=== PATIENT | female | born 2000 | race Caucasian/White ===

== ENCOUNTER → 2018-08-30 | Outpatient (CLI) | payer OTHER ==
[~2018-08-30] MED LIST: ACYC400 PO; CODACE30 PO; HYDACE5 PO; HYDACE5325 PO; MUPI2TO TOP; SULTRIDS PO
== END | disposition home or self-care (01) ==
LOC: LAB SHORT 07:42 → LAB EV 07:42
DX: N39.0 Urinary tract infection, site not specified (principal)
CPT/HCPCS: 87086

== ENCOUNTER → 2018-11-13 | Outpatient (CLI) | payer OTHER ==
[2018-11-14 12:46] LABS: G. vaginalis (DNA Probe) Positive (NEGATIVE); T. vaginalis (DNA Probe) Negative (NEGATIVE)
[2018-11-14 12:47] LABS: Candida species (DNA Probe) Negative (NEGATIVE)
[2018-11-15 16:06] LABS: CHLAMYDIA TRACHOMATIS, NAA Negative (Negative); NEISSERIA GONORRHOEAE, NAA Negative (Negative)
== END | disposition home or self-care (01) ==
LOC: LAB EV 14:39 → LAB SHORT 14:39
PROVIDERS: Physician Assistant
DX: R30.0 Dysuria (principal)
CPT/HCPCS: 87480; 87491; 87510; 87591; 87660

== ENCOUNTER → 2019-02-15 | Outpatient (CLI) | payer OTHER ==
[2019-02-16 21:06] LABS: CHLAMYDIA TRACHOMATIS, NAA Negative (Negative); NEISSERIA GONORRHOEAE, NAA Negative (Negative)
== END | disposition home or self-care (01) ==
LOC: LAB EV 17:45 → LAB SHORT 17:45
PROVIDERS: Physician Assistant
DX: R30.0 Dysuria (principal)
CPT/HCPCS: 87070; 87205; 87491; 87591; 88175

== ENCOUNTER → 2019-03-15 | Outpatient (CLI) | payer OTHER | END | disposition home or self-care (01) | LOC: LAB SHORT 15:21 → LAB EV 15:21 | DX: N39.0 Urinary tract infection, site not specified (principal) | CPT/HCPCS: 87086 ==

== ENCOUNTER 2019-08-17 09:15 | Emergency (ER) | payer OTHER ==
[~2019-08-17] VITALS: Ht 177.8 cm; Wt 66.2 kg
[2019-08-17 10:51] LABS: Alanine Aminotransfer (ALT/SGP 31 U/L (12-78); Albumin, Blood 4.2 g/dL (3.4-5.0); Albumin/Globulin Ratio 1.2 (0.8-1.8); Alk Phos 86 U/L (50-136); Anion Gap 9 mmol/L (6-16); Aspartate Aminotrans (AST/SGOT 26 U/L (12-37); Bilirubin, Total 0.4 mg/dL (0.1-1.0); Blood Urea Nitrogen 8 mg/dL (8-24); Bun/Creatinine Ratio 9.4 (12.0-20.0); CO2, Blood 25 mmol/L (21-32); Calcium, Blood 9.1 mg/dL (8.5-10.1); Chloride, Blood 101 mmol/L (98-108); Creatinine, Blood 0.85 mg/dL (0.40-1.00); Globulin, Blood 3.6 g/dL (2.2-4.0); Glomerular Filtration Rate >60 (60-); Glucose, Blood 72 mg/dL (70-99); Potassium, Blood 3.9 mmol/L (3.5-5.5); Sodium, Blood 135 mmol/L (136-145); Total Protein, Blood 7.8 g/dL (6.4-8.2)
[2019-08-17 10:52] LABS: RDW Coefficient Variation 11.9 % (11.7-14.2); RDW Standard Deviation 38.6 fL (35.1-46.3)
[2019-08-17 11:00] LABS: Source, Urine Clean Catch
[2019-08-17 11:06] LABS: Bilirubin, Urine Neg (Neg); Blood, Urine 2+ (Neg); Glucose Qualitative, Urine Neg (Neg); Ketones, Urine 3+ (Neg); Leukocyte Esterase, Urine Neg (Neg); Nitrite, Urine Neg (Neg); Protein, Urine Neg (Neg); Urobilinogen, Urine NORM (Normal); pH, Urine 6.5 (5.0-8.0)
[2019-08-17 11:33] LABS: BASOPHILS ABSOLUTE AUTO 0.03 K/mm3 (0.00-0.23); BASOPHILS PERCENT AUTO 1 % (0-2); EOSINOPHILS ABSOLUTE AUTO 0.03 K/mm3 (0.00-0.68); EOSINOPHILS PERCENT AUTO 1 % (0-6); Hematocrit 41.9 % (33.0-51.0); IMMATURE GRAN ABSOLUTE AUTO 0.02 K/mm3 (0.00-0.10); IMMATURE GRAN PERCENT AUTO 0 % (0-1); LYMPHOCYTES ABSOLUTE AUTO 0.76 K/mm3 (0.84-5.20); LYMPHOCYTES PERCENT AUTO 17 % (21-46); MONOCYTES ABSOLUTE AUTO 0.34 K/mm3 (0.16-1.47); MONOCYTES PERCENT AUTO 8 % (4-13); Mean Corpuscular HGB 29.6 pg (26.0-34.0); Mean Corpuscular HGB Conc 33.4 g/dL (31.5-36.5); Mean Corpuscular Volume 89 fL (80-100); NEUTROPHILS ABSOLUTE AUTO 3.27 K/mm3 (1.96-9.15); NEUTROPHILS PERCENT AUTO 74 % (41-73); Red Blood Cell Count 4.73 M/mm3 (3.80-5.20); White Blood Cell Count 4.45 K/mm3 (4.00-11.30)
[2019-08-17 11:40] LABS: Mean Platelet Volume 10.9 fL (9.1-12.4); Platelet Count 124 K/mm3 (150-400)
[2019-08-17 11:48] LABS: Appearance, Urine Clear (Clear); Color, Urine Yellow (P-Yellow)
[2019-08-17 11:50] LABS: Bacteria Rare /hpf; Red Blood Cells, Urine 0-2 /hpf (0-2); Squamous Epithelial Cells Rare /hpf (Few); White Blood Cells, Urine 0-2 /hpf (0-5)
== END 2019-08-17 12:10 | disposition home or self-care (01) ==
LOC: ER 09:15
PROVIDERS: Physician Assistant
DX: R55 Syncope and collapse (principal)
CPT/HCPCS: 36415; 80053; 81001; 81025; 85025; 99284

== ENCOUNTER → 2019-09-29 | Outpatient (CLI) | payer OTHER | LOC: LAB 18:59 → LAB SHORT 18:59 | PROVIDERS: Registered Nurse Community Health | DX: Z30.49 Encounter for surveillance of other contraceptives (principal); Z30.09 Encounter for other general counseling and advice on contraception | CPT/HCPCS: G0123 ==

== ENCOUNTER → 2019-11-22 | Outpatient (CLI) | payer OTHER | END | disposition home or self-care (01) | LOC: LAB 17:07 → LAB SHORT 17:07 | DX: R30.0 Dysuria (principal) | CPT/HCPCS: 87086 ==

== ENCOUNTER → 2020-04-24 | Outpatient (CLI) | payer OTHER ==
[2020-04-25 21:09] LABS: CHLAMYDIA TRACHOMATIS, NAA Negative (Negative); NEISSERIA GONORRHOEAE, NAA Negative (Negative)
== END ==
LOC: LAB SHORT 11:46 → LAB UCHC 11:46
PROVIDERS: Registered Nurse Community Health
DX: R30.0 Dysuria (principal); Z20.2 Contact with and (suspected) exposure to infections with a predominantly sexual mode of transmission
CPT/HCPCS: 87077; 87086; 87186; 87491; 87591

== ENCOUNTER → 2021-01-16 | Outpatient (CLI) | payer OTHER ==
[2021-01-16 18:58] LABS: Appearance, Urine Clear (Clear); Bilirubin, Urine Neg (Neg); Blood, Urine 3+ (Neg); Glucose Qualitative, Urine Neg (Neg); Ketones, Urine Neg (Neg); Leukocyte Esterase, Urine 1+ (Neg); Nitrite, Urine Neg (Neg); Protein, Urine Neg (Neg); Specific Gravity, Urine 1.005 (1.003-1.022); Urobilinogen, Urine NORM (Normal)
[2021-01-16 19:05] LABS: Color, Urine Pale Yellow (P-Yellow)
[2021-01-16 19:06] LABS: Bacteria Few /hpf; Squamous Epithelial Cells Few /hpf (Few)
== END | disposition home or self-care (01) ==
LOC: LAB 11:30 → LAB SHORT 11:30
PROVIDERS: Physician Assistant
DX: R30.0 Dysuria (principal); Z87.440 Personal history of urinary (tract) infections
CPT/HCPCS: 81001; 87086

== ENCOUNTER → 2021-11-20 | Outpatient (CLI) | payer OTHER ==
[2021-11-20 17:43] LABS: Source, Urine Voided
[2021-11-20 18:55] LABS: Appearance, Urine Cloudy (Clear); Blood, Urine 5+ (Neg); Glucose Qualitative, Urine Neg (Neg); Ketones, Urine Neg (Neg); Leukocyte Esterase, Urine 2+ (Neg); Nitrite, Urine Pos (Neg); Protein, Urine 1+ (Neg); Specific Gravity, Urine 1.015 (1.003-1.022); Urobilinogen, Urine 3+ (Normal)
[2021-11-20 19:04] LABS: Bilirubin, Urine 3+ (Neg)
[2021-11-20 19:05] LABS: Color, Urine Orange (P-Yellow)
[2021-11-20 19:06] LABS: Bacteria Mod /hpf; Red Blood Cells, Urine 25-50 /hpf (0-2); Squamous Epithelial Cells Few /hpf (Few); White Blood Cells, Urine TNTC /hpf (0-5)
== END | disposition home or self-care (01) ==
LOC: LAB SHORT 17:39
PROVIDERS: Nurse Practitioner Family
DX: N30.01 Acute cystitis with hematuria (principal)
CPT/HCPCS: 81001; 87077; 87086; 87186

== ENCOUNTER → 2023-03-02 | Outpatient (CLI) | payer OTHER ==
[2023-03-02 12:48] LABS: Source, Urine Voided
[2023-03-02 15:21] LABS: Bacteria Many /hpf; Squamous Epithelial Cells Few /hpf (Few)
== END | disposition home or self-care (01) ==
LOC: LAB SHORT 12:45 → LAB 12:45
PROVIDERS: Physician Assistant
DX: N30.00 Acute cystitis without hematuria (principal)
CPT/HCPCS: 81015; 87077; 87086; 87186

== ENCOUNTER → 2023-05-18 | Outpatient (CLI) | payer OTHER | END | disposition home or self-care (01) | LOC: LAB 16:52 → LAB SHORT 16:52 | DX: R30.0 Dysuria (principal); R35.0 Frequency of micturition | CPT/HCPCS: 87086 ==

== ENCOUNTER 2024-06-29 14:25 | Inpatient (IN) | payer OTHER ==
[2024-06-29] VITALS (13 sets, daily range): BP systolic 115–165; BP diastolic 55–78
[~2024-06-29] VITALS: Ht 180.3 cm; Wt 96.4 kg
[2024-06-29] MEDS ORDERED: PRENATAL TABLE1 EAC2 PO (15:12)
[2024-06-29] MEDS ORDERED: OXYTOCIN/RINGER'S LACTATE 500 ML IV PRN (15:20)
[2024-06-29] MEDS ORDERED: Acetaminophen 500 MG Tab PO PRN (15:20)
[2024-06-29] MEDS ORDERED: FentaNYL Citrate 50 MCG/ML 2 ML Injection IV PRN (15:20)
[2024-06-29] MEDS ORDERED: Tranexamic Acid 100 ML IV SCH (15:20)
[2024-06-29] MEDS ORDERED: Carboprost Tromethamine 250 MCG/ML 1ML Amp IM PRN (15:20)
[2024-06-29] MEDS ORDERED: Ondansetron HCl 2 MG / ML 2ML Vial IV PRN (15:20)
[2024-06-29] MEDS ORDERED: Lactated Ringer's 1,000 ML IV PRN (15:20)
[2024-06-29] MEDS ORDERED: Oxytocin 10 Unit / ML Vial IM PRN (15:20)
[2024-06-29] MEDS ORDERED: Misoprostol 200 MCG Tab PR PRN (15:20)
[2024-06-29] MEDS ORDERED: Methylergonovine Maleate 0.2MG / ML 1ML Amp IM PRN (15:20)
[2024-06-29] MEDS ORDERED: Misoprostol 200 MCG Tab BC PRN (15:20)
[2024-06-29] MEDS ORDERED: Calcium Carbonate 500 MG Tab Chew PO PRN (15:25)
[2024-06-29] MEDS ORDERED: Lactated Ringer's 1,000 ML IV SCH ×2 (15:25)
[2024-06-29] MEDS ORDERED: ePHEDrine Sulfate 50 MG/ML 1ML Injection XX PRN (15:25)
[2024-06-29] MEDS ORDERED: FentaNYL 2mcg/ml-Bup 0.1% Epd 250 ML EPI PRN (15:25)
[2024-06-29 15:49] LABS: BASOPHILS ABSOLUTE AUTO 0.05 K/mm3 (0.00-0.23); BASOPHILS PERCENT AUTO 0 % (0-2); EOSINOPHILS ABSOLUTE AUTO 0.02 K/mm3 (0.00-0.68); EOSINOPHILS PERCENT AUTO 0 % (0-6); Hematocrit 41.6 % (33.0-51.0); Hemoglobin 13.8 g/dL (11.5-16.0); IMMATURE GRAN ABSOLUTE AUTO 0.13 K/mm3 (0.00-0.10); IMMATURE GRAN PERCENT AUTO 1 % (0-1); LYMPHOCYTES PERCENT AUTO 6 % (21-46); MONOCYTES ABSOLUTE AUTO 1.11 K/mm3 (0.16-1.47); MONOCYTES PERCENT AUTO 6 % (4-13); Mean Corpuscular HGB 29.1 pg (26.0-34.0); Mean Corpuscular HGB Conc 33.2 g/dL (31.5-36.5); Mean Corpuscular Volume 88 fL (80-100); Mean Platelet Volume 10.6 fL (9.1-12.4); NEUTROPHILS ABSOLUTE AUTO 16.22 K/mm3 (1.96-9.15); NEUTROPHILS PERCENT AUTO 87 % (41-73); Platelet Count 298 K/mm3 (150-400); RDW Coefficient Variation 12.6 % (11.7-14.2); RDW Standard Deviation 39.8 fL (35.1-46.3); Red Blood Cell Count 4.75 M/mm3 (3.80-5.20); White Blood Cell Count 18.73 K/mm3 (4.00-11.30)
[2024-06-30] VITALS (23 sets, daily range): BP systolic 100–172; BP diastolic 55–74
[2024-06-30] MEDS ORDERED: OXYTOCIN/RINGER'S LACTATE 500 ML IV PRN (02:25)
[2024-06-30] MEDS ORDERED: Lactated Ringer's 1,000 ML IV SCH ×2 (04:05→15:25)
[2024-06-30] MEDS ORDERED: Methylergonovine Maleate 0.2MG / ML 1ML Amp IM PRN (04:05)
[2024-06-30] MEDS ORDERED: Misoprostol 100 MCG Tab PO PRN (04:05)
[2024-06-30] MEDS ORDERED: Ketorolac Tromethamine 30mg Vial IV PRN (04:05)
[2024-06-30] MEDS ORDERED: OXYTOCIN/RINGER'S LACTATE 500 ML IV SCH (04:10)
[2024-06-30] MEDS ORDERED: Ibuprofen 400 MG Tab PO PRN (04:10)
[2024-06-30] MEDS ORDERED: Docusate Sodium 100 MG Cap PO PRN (04:10)
[2024-06-30] MEDS ORDERED: FLU VACC TS2024-25(6MOS UP)/PF 45 MCG/0.5 ML SYRINGE IM ONE (04:10)
[2024-06-30] MEDS ORDERED: Witch Hazel/Glycerin PADS TOP PRN (04:10)
[2024-06-30] MEDS ORDERED: Acetaminophen 325 MG TABLET PO PRN (04:10)
[2024-06-30] MEDS ORDERED: Benzocaine/Benzethon Topical Anesthetic Spray 78GM TOP PRN (04:10)
[2024-06-30] MEDS ORDERED: OxyCODONE 5 mg/Acetamin 325 mg TABLET PO PRN (04:15)
[2024-06-30] MEDS ORDERED: Lanolin Cream TOP PRN (04:15)
[2024-06-30] MEDS ORDERED: Prenatal Vit/FE Fumarate/FA 1 Tab PO SCH (09:00)
[2024-06-30 15:01] LABS: Hematocrit 33.7 % (33.0-51.0); Hemoglobin 11.3 g/dL (11.5-16.0); Mean Corpuscular HGB 29.2 pg (26.0-34.0); Mean Corpuscular HGB Conc 33.5 g/dL (31.5-36.5); Mean Corpuscular Volume 87 fL (80-100); Platelet Count 262 K/mm3 (150-400); RDW Standard Deviation 41.3 fL (35.1-46.3); Red Blood Cell Count 3.87 M/mm3 (3.80-5.20); White Blood Cell Count 20.97 K/mm3 (4.00-11.30)
[2024-07-01 00:01] VITALS: BP 119/63
[2024-07-01 03:51] VITALS: BP 127/64
[2024-07-01 08:12] VITALS: BP 125/64
[2024-07-01 12:17] VITALS: BP 123/73
[2024-07-01] MEDS ORDERED: TRIA15CR3 TOP (12:47)
== END 2024-07-01 13:15 | disposition home or self-care (01) | DRG 807 ==
LOC: OBS 14:25 → BC 14:25 → OBS 14:57 → BC 14:59
PROVIDERS: ADMIT Advanced Practice Midwife
PROC: 00HU33Z Insertion of Infusion Device into Spinal Canal, Percutaneous Approach (ICD-10-PCS; 2024-06-29)
PROC: 3E0R3BZ Introduction of Anesthetic Agent into Spinal Canal, Percutaneous Approach (ICD-10-PCS; 2024-06-29)
PROC: 10E0XZZ Delivery of Products of Conception, External Approach (ICD-10-PCS; principal; 2024-06-30)
PROC: 10907ZC Drainage of Amniotic Fluid, Therapeutic from Products of Conception, Via Natural or Artificial Opening (ICD-10-PCS; 2024-06-30)
PROC: 0HQ9XZZ Repair Perineum Skin, External Approach (ICD-10-PCS; 2024-06-30)
DX: O69.81X0 Labor and delivery complicated by cord around neck, without compression, not applicable or unspecified (principal); Z37.0 Single live birth; O70.0 First degree perineal laceration during delivery; Z3A.39 39 weeks gestation of pregnancy; Z28.21 Immunization not carried out because of patient refusal
CPT/HCPCS: 36415; 51702; 85025; 85027; 86850; 86900; 86901; A9270; J1885; J2405; J2590; J3010; J7120